=== PATIENT | female | born 1990 | race Caucasian/White ===

== ENCOUNTER → 2022-09-23 16:38 | Outpatient (CLI) | payer MEDICAID, SELFPAY ==
--- NOTE | 2022-09-23 16:47 | XR_ITS ---
PROCEDURE INFORMATION: Exam: XR Left Ankle Exam date and time: 09/23/2022 4:51 PM Age: 32 years old Clinical indication: Pain; Ankle; Left; Additional info: HX of fracture TECHNIQUE: Imaging protocol: Radiologic exam of the Left ankle. Views: 3 or more views. COMPARISON: No relevant prior studies available. FINDINGS: Bones/joints: Overlying cast material obscures the assessment of fine bony details. The mortise joint space is symmetric. No visible fracture or dislocation. Soft tissues: Normal. IMPRESSION: No visible fracture or dislocation.
--- NOTE | 2022-09-23 16:47 | XR_ITS ---
PROCEDURE INFORMATION: Exam: XR Right Foot Complete; Alignment Exam date and time: 09/23/2022 4:51 PM Age: 32 years old Clinical indication: Pain; Foot; Right; Additional info: Foot pain TECHNIQUE: Imaging protocol: Radiologic exam of the Right foot. Views: 3 or more views. COMPARISON: No relevant prior studies available. FINDINGS: Bones/joints: No visible fracture or dislocation. Lisfranc interval is intact. Soft tissues: Normal. IMPRESSION: No visible fracture or dislocation.
--- NOTE | 2022-09-23 16:47 | XR_ITS ---
PROCEDURE INFORMATION: Exam: XR Left Foot Complete; Alignment Exam date and time: 09/23/2022 4:51 PM Age: 32 years old Clinical indication: Pain; Foot; Left; Additional info: Foot pain TECHNIQUE: Imaging protocol: Radiologic exam of the Left foot. Views: 3 or more views. COMPARISON: No relevant prior studies available. FINDINGS: Bones/joints: Lisfranc interval is intact. Acute mildly displaced fracture along the medial base of the great toe's distal phalanx. Soft tissues: Soft tissue swelling overlying the distal great toe. IMPRESSION: Acute mildly displaced fracture along the medial base of the great toe's distal phalanx.
== END ==
PROVIDERS: PCP Emergency Medicine; Visit Provider Podiatrist
DX: M79.672 Pain in left foot (principal); S82.892A Other fracture of left lower leg, initial encounter for closed fracture; M79.671 Pain in right foot
CPT/HCPCS: 73610; 73630